=== PATIENT | male | born 1980 | race Caucasian/White ===

== ENCOUNTER 2018-05-22 02:15 | Inpatient (IN) ==
[2018-05-22] MEDS ORDERED: Naloxone 0.4 MG/ML INJ IVP PRN (05:36)
[2018-05-22] MEDS ORDERED: *HR* Heparin 5,000 UNIT/ML VIAL IVP ONE (05:41)
[2018-05-22] MEDS ORDERED: *HR* Heparin 5,000 UNIT/ML VIAL IVP PRN ×2 (05:41)
[2018-05-22] MEDS ORDERED: Heparin 25,000 UNIT/500 ML D5W 25,000 UNIT/500 ML BAG IVC SCH (05:45)
[2018-05-22] MEDS ORDERED: Nitroglycerin 25 MG/250 ML INFUS..BTL IVC SCH (05:45)
[2018-05-22] MEDS ORDERED: *HR* Morphine 2 MG/ML SYRINGE IVP PRN (05:49)
--- NOTE | 2018-05-22 06:19 | Internal Med History&Physical ---
Date of Encounter: 05/22/18 Time of Encounter: 06:00 Internal Medicine - H&P: HPI Chief complaint: Left sided chest pain of 2 days duration History of present illness: Mr. Odonnell is a 38 year old male with pmh of hypertension, hyperlipidemia, hypothyroidism, obesity who says he hasn't been taking his BP meds for the past 6 months because he couldn't get them presenting with left sided chest pain of 2 days duration. Patient notes pain started at rest when he was watching TV about 2 days ago, and has been constant sharp, no relieving factors and radiates to his left shoulder and neck. Pain continued to get worse and that's why he came to the ER. He denies any other acute symptoms such as shortness of breath or fevers. In ER, BP was noted to be elevated at 235/140 and he was started on a nitroglycerin drip. Troponins were done which came back at 3.96. CT angio was done which was negative for PE. Cardiology was consulted and he was started on a heparin drip Past Med Surg Social Fam HX - Past Medical History Medical history: hyperlipidemia, hypertension, thyroid disease Additional medical history: hypothyroidism Psychiatric history: no psych history - Past Surgical History Surgical History: vasectomy - Social History Smoking Status: Former smoker Smokeless Tobacco Status: Yes Alcohol use: occasionally Drug use: none Internal Medicine - H&P: Meds No Known Home Drugs 05/21/18 [History] 3 Allergy/AdvReac Type Severity Reaction Status Date / Time aspirin Allergy Rash Verified 05/21/18 22:53 All Systems PM: A 10-system review of systems was performed and is negative for pertinent findings except as documented above in the HPI. - Constitutional Constitutional: no chills, no fever(s), no night sweats - EENT Eyes: no change in vision, no discharge, no pain, no photophobia Ears: no ear discharge, no ear pain, no tinnitus Nose, mouth and throat: no dysphagia, no nasal discharge, no neck pain, no sore throat - Cardiovascular Cardiovascular ROS IM: chest pain, no diaphoresis, no dyspnea, no lightheadedness, no palpitations, no syncope - Respiratory Respiratory: no cough, no dyspnea, no wheezing, no excessive phlegm production - Gastrointestinal Gastrointestinal: no abdominal pain, no diarrhea, no hematemesis, no hematochezia, no melena, no nausea, no vomiting - Musculoskeletal Musculoskeletal ROS IM: no numbness, no tingling - Integumentary Integumentary IM: no rash, no unusual bruising - Neurological Neurological ROS: no confusion, no convulsions, no focal weakness, no numbness, no tingling, no tremor(s) - Hematologic/Lymphatic Hematologic/Lymphatic: no easy bruising - Constitutional Vitals: Temp Pulse Resp BP Pulse Ox 98.4 F 85 16 163/113 96 05/22/18 04:31 05/22/18 04:31 05/22/18 04:31 05/22/18 04:31 05/22/18 04:31 Exam: obese - Head Head exam: Present: atraumatic, normocephalic - Eye Eye exam: Present: PERRL, conjuntiva pink, sclera anicteric Pupils: Present: PERRL - Neck Neck exam general surgery: Present: supple, trachea midline. Absent: lymphadenopathy - Respiratory Respiratory exam: Present: CTAB. Absent: accessory muscle use, rales, rhonchi, wheezes - Cardiovascular Cardiovascular exam: Present: RRR, +S1, +S2. Absent: diastolic murmur, gallop, rubs, systolic murmur - GI/Abdominal GI/Abdominal exam: Present: normal bowel sounds, soft, no peritoneal signs. Absent: distended, tenderness - Extremities Exam Extremities exam: Present: warm, radial pulses palpable and symmetrical. Absent : calf tenderness, cyanotic, pedal edema - Neurological Exam Neurological exam: Present: CN II-XII intact, oriented X3, no focal deficits. Absent: pronater drift, facial droop, speech deficit - Skin Skin exam: Present: dry, intact - Assessment and plan (1) Hypertensive emergency Current Visit: No Status: Acute Assessment and plan: Hypertensive emergency with acute NSTEMI. Pt had elevated BP to 235/140 with chest pain and elevated troponins. Has been started on a nitroglycerin drip. Will attempt to lower BP slowly (2) NSTEMI (non-ST elevated myocardial infarction) Current Visit: No Status: Acute Assessment and plan: Pt had chest pain with elevated troponins of 3.96. Has risk factors for CAD including htn, hyperlipidemia , obesity and has not been taking his BP meds for 6 months. Started on ACS protocol with full anticoagulation, nitroglycerin, plavix and statin. Aspirin held due to allergy. CT angio showed no PE. Obtain 2D echo to assess for wall motion abnormalities. Follow up cardio recs for stress test vs cath (3) DVT prophylaxis Current Visit: Yes Status: Acute Assessment and plan: On heparin drip (4) Hypothyroidism Current Visit: Yes Status: Acute Assessment and plan: Reported hypothyroidism. Obtain TSH Qualifiers: Qualified Code(s): E03.9 - Hypothyroidism, unspecified - Time Spent With Patient Total time spent is greater than 50% in coordination of care (as documented) at patient's floor/unit and/or counseling patient:
[2018-05-22 06:32] LABS: Hematocrit 48.8 % (37.5-50.1); Hemoglobin 16.4 g/dL (12.9-16.9); Mean Corpuscular HGB Conc 33.6 g/dL (31.6-35.5); Mean Corpuscular Hemoglobin 28.3 pg (28.0-33.3); Mean Corpuscular Volume 84.1 fL (83.0-100.0); Mean Platelet Volume 10.4 fL (9.4-12.4); Platelet Count 236 K/mcL (140-400); Red Cell Distribution Width 13.4 % (11.5-14.5)
[2018-05-22 06:39] LABS: Heparin anti-factor XA UFH 0.12 IU/mL (0.30-0.70)
[2018-05-22 06:40] LABS: Basophils # 0.1 K/mcL (0.0-0.2); Basophils % 0.4 %; Eosinophils # 0.1 K/mcL (0.0-0.6); Eosinophils % 0.5 %; Immature Granulocytes % 0.3 % (0-4); Lymphocytes # 2.7 K/mcL (0.6-4.6); Monocytes # 1.1 K/mcL (0.0-1.3); Monocytes % 7.4 %; Neutrophils # 10.4 K/mcL (1.6-8.9); Segmented Neutrophils % 72.4 %
[2018-05-22 07:03] LABS: BUN/Creatinine Ratio 12 (6-26); Blood Urea Nitrogen 10 mg/dL (6-20); Carbon Dioxide 22 mEq/L (23-29); Chloride 105 mEq/L (98-107); Glucose 119 mg/dL (70-105); Magnesium 1.9 mg/dL (1.6-2.6); Osmolality,Calculated 282 (280-300); Phosphorous 3.6 mg/dL (2.7-4.5); Potassium 4.3 mEq/L (3.5-5.1); Sodium 136 mEq/L (136-145); Troponin I 5.06 ng/mL (< 0.04); eGFR For Non-African Americans > 60 (> 60)
[2018-05-22 07:22] LABS: Thyroid Stimulating Hormone 19.777 mcIU/mL (0.340-5.600)
[2018-05-22] MEDS: Potassium Chloride Elixir 20 MEQ/15 ML UDC PO SCH ×2 (08:42→20:35)
[2018-05-22] MEDS ORDERED: Aspirin 81 MG TAB.CHEW PO SCH (09:00)
--- NOTE | 2018-05-22 09:00 | Cardiology Consult Note ---
<Shady Castellano R - Last Filed: 05/22/18 09:12> Date of Encounter: 05/22/18 Time of Encounter: 08:46 Assessment and Plan (1) NSTEMI (non-ST elevated myocardial infarction) Current Visit: Yes Status: Acute Troponins 3.69, 3.93, 5.06. BP reportedly as high as 235/140. PMH uncontrolled HTN, HLD. EKG sinus tach. CTA negative for PE. Constant chest pain x 2 days with radiation to left arm and neck. No other associated symptoms. On heparin gtt and nitro gtt--currently chest pain free. TTE to evaluate structure and function. Recommend LHC--R/B/A discussed. Pt agrees to proceed. Pt was already started on ASA, Plavix, Statin, BB by primary team. ASA allergy listed--pt reports mild rash, states is not too bothersome and would be agreeable to take it if necessary. (2) Hypertensive emergency Current Visit: Yes Status: Acute BP reportedly as high as 235/140. Was not on antihypertensive meds the past 6 months. On nitro gtt. BB started. Will order IV Hydralazine PRN and adjust antihypertensives as necessary. (3) Hypothyroidism Current Visit: Yes Status: Acute TSH 19.777. Management per primary team. Qualifiers: Hypothyroidism type: unspecified Qualified Code(s): E03.9 - Hypothyroidism , unspecified Discussion w patient/family: The assessment and plan as outlined above was discussed with the patient and/or family members who expressed understanding and agreement. All questions were answered. Thank you for involving us in the care of your patient. Please call with any questions. I will discuss all the above with Dr. Irineo Hong and make changes as necessary. History of Present Illness Consult date: 05/22/18 Requesting physician: Hina Mathur Consult reason: NSTEMI Chief complaint: chest pain History of present illness: Mr. Odonnell is a 38 year old male with PMH of hypertension, hyperlipidemia, hypothyroidism, obesity, who hasn't been taking his BP meds for the past 6 months due to running out of refills that presented with left sided chest pain for 2 days. Pain started at rest when he was watching TV and has been constant sharp, radiates to his left shoulder and neck. Pain continued to get worse and that's why he came to the ER. He denies any other associated symptoms such as dyspnea or LE edema. In ER, BP was noted to be elevated at 235/140 and he was started on a nitroglycerin drip. Troponins have been trended --3.69, 3.93, 5.06. Pt is currently chest pain free. CTA negative for PE. Cardiology consulted for further recs. Past Med Surg Social Fam HX - Past Medical History Medical history: hyperlipidemia, hypertension, thyroid disease Additional medical history: hypothyroidism Psychiatric history: no psych history - Past Surgical History Surgical History: vasectomy - Social History Smoking Status: Former smoker Smokeless Tobacco Status: Yes Alcohol use: occasionally Drug use: none Medications and Allergies No Known Home Drugs 05/21/18 [History] 3 Allergy/AdvReac Type Severity Reaction Status Date / Time aspirin Allergy Rash Verified 05/21/18 22:53 All Systems Review: The remainder of the systems were reviewed and are negative - Cardiovascular Cardiovascular: as per HPI, chest pain at rest, chest pain with exertion, radiating jaw, neck or arm pain Physical Examination Vital Signs, Last 4 Hours Temp Pulse Resp BP Pulse Ox 05/22/18 07:19 98.6 F 94 18 194/136 95 Vital Signs Temp Pulse Resp BP Pulse Ox 05/22/18 07:19 98.6 F 94 18 194/136 95 05/22/18 04:31 98.4 F 85 16 163/113 96 Intake and Output 05/21/18 05/22/18 05/22/18 23:59 07:59 15:59 Intake Total Output Total 0 / 0 Balance Intake: IV Fluids Heparin 25,000 UNIT/500 ML D5W 0 / 0 25,000 unit In 500 ml @ 8.2 UNIT/KG/HR 19.926 mls/hr IVC . Q24H [facility] Rx#:[id number] Nitroglycerin Premix 25 MG/250 ML 25 mg In 250 ml @ Per Protocol IVC .Q0M ROSALINE Rx#: [id number] Output: Urine 0 / 0 Other: Weight 121.5 kg Patient Weight 05/22/18 23:59 Weight 121.5 kg General: Conversant, No Apparent Distress HEENT: Atraumatic, Normocephaly, Mucus Membranes Moist Neck: No JVD, Normal carotid pulses Cardiac: Reg Rate and Rhythm, Normal S1 and S2, No Murmur Lungs: Normal Breath Sounds, No Wheeze, Rales, Rhonchi Neuro: Alert and responsive, No focal deficits noted Abdomen: Soft, Non-Tender Skin: No rashes noted on visualized skin Musculoskeletal: No Chest Wall Tenderness Extremities: No Clubbing, No Cyanosis, No Edema, Normal Pulses Results 05/22/18 06:02 05/22/18 06:02 Lab Results 05/22/18 05/22/18 05/22/18 06:02 06:02 06:02 WBC 14.0 H Hgb 16.4 Hct 48.8 Plt Count 236 INR 1.0 Sodium 136 Potassium 4.3 D Chloride 105 Carbon Dioxide 22 L BUN 10 Creatinine 0.85 Glucose 119 H Calcium 9.0 Magnesium 1.9 Troponin I 5.06 H* TSH 19.777 H - EKG Interpretation EKG results cardiology: personally reviewed, other (12 hr tele AVG HR 89, SR, no significant pauses or arrhythmias) Consult Discharge Plan - Plan Referrals: Danny Xie DO [Primary Care Provider] - Kaela Carter [Family Provider] - <Irineo Hong - Last Filed: 05/22/18 12:36> Date of Encounter: 05/22/18 - Attending Attestation I have personally performed a face to face evaluation on this patient. I have reviewed and agree with the care plan. History and Exam by me shows: Multiple niyah factors, chest pain with NSTEMI. Recommend left heart cath. Assessment and Plan Discussion w patient/family: The assessment and plan as outlined above was discussed with the patient and/or family members who expressed understanding and agreement. All questions were answered. Thank you for involving us in the care of your patient. Please call with any questions. History of Present Illness History of present illness: Mr. Odonnell is a 38 year old male All Systems Review: The remainder of the systems were reviewed and are negative Physical Examination Vital Signs, Last 4 Hours Temp Pulse Resp BP Pulse Ox 05/22/18 11:45 98.4 F 83 18 129/92 95 Results 05/22/18 06:02 05/22/18 06:02 Lab Results 05/22/18 05/22/18 05/22/18 06:02 06:02 06:02 WBC 14.0 H Hgb 16.4 Hct 48.8 Plt Count 236 INR 1.0 Sodium 136 Potassium 4.3 D Chloride 105 Carbon Dioxide 22 L BUN 10 Creatinine 0.85 Glucose 119 H Calcium 9.0 Magnesium 1.9 Troponin I 5.06 H* TSH 19.777 H
[2018-05-22] MEDS: Aspirin 81 MG TAB.CHEW PO SCH (10:00)
--- NOTE | 2018-05-22 10:29 | Event Note ---
Date of Encounter: 05/22/18 Time of Encounter: 10:27 Patient was examined and the review of the test reports. Also reviewed the cardiology note. A sterile high blood pressure therefore metoprolol 25 mg every 8 hours with hold parameter started. Continue nitroglycerin and heparin drip. Plan for LHC later today. Chest pain better but developing mild headache. Will plan to wean down nitroglycerin drip if severe headache or blood pressure better controlled. Morning lab ordered.
[2018-05-22] MEDS ORDERED: Nitroglycerin 1,000 MCG/10 ML VIAL IV ONE (12:35)
[2018-05-22] MEDS ORDERED: ISOVUE-370 200 ML INFUS..BTL IV ONE ×3 (12:35→13:58)
[2018-05-22] MEDS ORDERED: *HR* Heparin 10,000 UNIT/10 ML VIAL ONE (12:35)
[2018-05-22] MEDS ORDERED: 0.9 % Sodium Chloride 1,000 ML ONE ×2 (12:35→13:00)
[2018-05-22] MEDS ORDERED: Heparin 1,000 UNITS/500 mL 500 ML ONE (12:35)
[2018-05-22] MEDS ORDERED: *HR* Midazolam HCl 2 MG/2 ML VIAL ONE ×3 (13:10→13:56)
--- NOTE | 2018-05-22 13:11 | Pre-Sedation Evaluation ---
Pre-sedation evaluation - Pre-sedation checklist Date of procedure: 05/22/18 Procedure: [facility] Recent Vitals: Last Vital Signs Temp 98.4 F 05/22/18 11:45 Pulse 83 05/22/18 11:45 Resp 18 05/22/18 11:45 BP 129/92 05/22/18 11:45 Pulse Ox 95 05/22/18 11:45 H&P (including ROS) documented in medical record: Yes Previous reaction to sedatives/anesthetics: No Dietary Status: NPO after Midnight Dentition: No loose teeth or bridges Possible difficult airway: No ASA Classification *see protocol: CLASS III-Severe systemic disease Plan of Care: Pt appropriate candidate for procedure/moderate/conscious sedation , Risks/benefits of procedure/sedation discussed w/ patient/family, If not NPO; Risk of intake outweiged by necessity to perform procedure Cardiac Registry (Cardio Only) - Functional Capacity Functional Capacity: >=4 METS without symptoms - Clincal Frailty Scale Clinical Frailty Scale: Well
[2018-05-22] MEDS ORDERED: *HR* Morphine 2 MG/ML SYRINGE ONE ×3 (13:37→14:26)
[2018-05-22] MEDS ORDERED: *HR* Ticagrelor 90 MG TABLET ONE (14:40)
--- NOTE | 2018-05-22 16:14 | Invasive Diagnostic Lab Proc ---
Name: Chandan Odonnell Date of Study: 05/22/2018 Date: 1980 Ht: 68.1in Medical Record#: [id number] Age: 38 Wt: 267.86lb Gender: Male BSA: 2.32 Order #: [id number] BMI: 40.6 Physicians Procedure Physician: Edmond Coronel DO Referring MD: Referring MD: Staff Name Position Time In [facility], [facility] RT (R) Scrub 01:02 PM Bethanie Samano RN Monitor 01:03 PM Dong Baker RN Retail Administrative Assistant 01:03 PM Jennifer Santizo RN Monitor 01:17 PM Indications Indication Non-Stemi Procedures Performed Procedure L HRT ARTERY/VENTRICLE ANGIO PRQ CARD ARIAS STENT W/ANGIO 1 VSL PRQ CARDIAC ANGIOPLAST 1 ART Pre-Procedure Checklist Informed consent is complete signed and on chart. H&P is on chart. ID band is on and ID verified with patient. Patient NPO for procedure The procedure was described for the patient and questions were answered. Blood Pressure: 129/92 ECG is on chart. Plan of Care Patient will tolerate the procedure without complications. Adequate level of comfort will be maintained. Hemodynamics will remain stable Patient will recover from procedure without complications. Respiratory function will be maintained. Cardiac rhythm will remain stable. Patient temperature will be maintained. Patient and/or family have verbalized understanding of the procedure. Patient Education Chief Complaint/Reason for Test: Cardiac Cath Developmental Category: Adult (18-64 years) Developmentally Appropriate for Age: Yes Learning Barriers: None Education Needs: Procedure Education Method: Verbal Information Taught: Cardiac Cath Educational Evaluation: Able to repeat information Intravenous Access Time IV Size Location DC'd Fluid/Drip Rate Units RN 20g 1 1/4" Patent On Arrival Lt Antecubital 20g 1 1/4" Patent On Arrival Rt Antecubital Allergies aspirin NO KNOWN ALLERGIES Vital Signs Time BP (mmHg) HR (bpm) O2 Sat. RR (bpm) LOC 10:24 AM 194 / 136 94 94 % 18 5 = Fully awake and oriented or at pre-proc level 01:10 PM / % 5 = Fully awake and oriented or at pre-proc level 01:10 PM / % 4 = Oriented but drowsy 01:25 PM / % 4 = Oriented but drowsy 01:40 PM / % 4 = Oriented but drowsy 01:55 PM / % 4 = Oriented but drowsy 02:10 PM / % 4 = Oriented but drowsy 01:55 PM 186 / 118 99 99 % 25 01:59 PM 183 / 113 101 97 % 29 02:04 PM 195 / 128 100 97 % 9 02:10 PM 193 / 129 94 98 % 23 02:14 PM 195 / 140 97 96 % 12 02:28 PM 196 / 139 98 % 16 01:10 PM 153 / 105 98 96 % 5 01:14 PM 159 / 103 91 94 % 01:19 PM 160 / 101 89 95 % 01:25 PM 164 / 106 86 97 % 01:29 PM 165 / 108 89 98 % 17 01:35 PM 155 / 101 96 97 % 15 01:39 PM 173 / 111 95 97 % 25 01:44 PM 168 / 122 97 97 % 20 01:49 PM 181 / 120 96 97 % 29 02:40 PM 192 / 140 102 97 % 18 4 = Oriented but drowsy 02:45 PM 192 / 129 94 95 % 18 4 = Oriented but drowsy 03:00 PM 180 / 138 96 95 % 16 4 = Oriented but drowsy 03:15 PM 181 / 125 96 99 % 16 4 = Oriented but drowsy 03:30 PM 165 / 103 96 99 % 16 4 = Oriented but drowsy 03:44 PM 159 / 101 90 99 % 16 4 = Oriented but drowsy 03:56 PM 147 / 79 80 94 % 16 4 = Oriented but drowsy 04:00 PM 136 / 85 80 95 % 16 5 = Fully awake and oriented or at pre-proc level Procedural Medications Time Medication Dose Units Method Given By 01:01 PM Nitroglycerin 25 mcg/min Intravenous 01:10 PM Oxygen 2 L/min nasal cannula Dong Baker RN 01:10 PM 0.9NaCl 50 ml/hr Intravenous Dong Baker RN 01:11 PM Versed 2 mg Intravenous Dong Baker RN 01:21 PM Lidocaine 2% 10 ml Subcutaneous Edmond Coronel DO 01:22 PM Nitroglycerin D/c'd Dong Baker RN 01:23 PM Lidocaine 2% 7 ml Subcutaneous Edmond Coronel DO 01:25 PM Versed 1 mg Intravenous Dong Baker RN 01:30 PM Versed 1 mg Intravenous Dong Baker RN 01:34 PM Heparin 2000 units Intravenous Dong Baker RN 01:37 PM Morphine 2 mg Intravenous Dong Baker RN 01:51 PM Heparin 2000 units Intravenous Dong Baker RN 01:56 PM Versed 1 mg Intravenous Dong Baker RN 01:58 PM Nitroglycerin 100 mcg Intracoronary CoronelEdmond 02:07 PM Morphine 2 mg Intravenous Dong Baker RN 02:22 PM Brilinta 180 mg Orally Dong Baker RN 02:27 PM Versed 1 mg Intravenous Dong Baker RN 02:27 PM Morphine 2 mg Intravenous Dong Baker RN 02:29 PM Nitroglycerin 5 mcg/min Intravenous Dong Baker RN 03:00 PM Hydralazine 10 mg Intravenous Jennifer Santizo RN ASA Classification: CLASS III- Severe systemic disease (i.e. prior AMI, diabetes with vascular complications, morbid obesity) Juan Score Preprocedure Postprocedure Activity 2- Moves 4 extremities sustained head lift Activity 2- Moves 4 extremities sustained head lift Circulation 2- SBP +/= 20 points of pre-anesthetic level Circulation 2- SBP +/= 20 points of pre-anesthetic level Consciousness 2- Awake and alert oriented x 3 Consciousness 2- Awake and alert oriented x 3 O2 Saturation 2- Able to maintain O2 satruation of 92% on room air O2 Saturation 2- Able to maintain O2 satruation of 92% on room air Respiratory 2- Able to deep breathe and cough well Respiratory 2- Able to deep breathe and cough well Total Score 10 Total Score 10 Contrast Agent: Isovue Diagnostic Contrast: 280 ml Total Contrast: 280 ml Fluoro Dose: 421 mGy Activated Clotting Time Time Seconds to Clot 01:51 PM 255 02:25 PM 169 Procedure Log Time Note Enter By 01:01 PM Pt arrived to lab head 1 at 13:01 scoates 01:02 PM Patient arrived at 13:01 with Nitroglycerin Intravenous drip @ 25 mcg/min scoates 01:02 PM Physican responded and notified patient is ready 12:27 scoates 01:03 PM Brittani Sosa (R) Position: Scrub Time in: 13:02 scoates 01:03 PM Bethanie Samano RN Position: Monitor Time in: 13:03 scoates 01:03 PM Dong Baker RN Position: Retail Administrative Assistant Time in: 13:03 scoates 01:03 PM Patient charges- Angio tray pack, Navilyst 3mm J, Pulse Oximetry and ACIST tubing and transducer scoates 01:03 PM Jennifer Santizo RN Position: Monitor Time in: 13:03 avis :05 PM Sign in performed according to hospital policy. kmavis 01:06 PM CathStat 01:06 PM Case Start 01:06 PM Physician arrived 13:04 kmavis 01:06 PM Meet and greet completed kmavis 01:06 PM Procedure start 13:06 avis :07 PM Hair removed from procedure site in holding area using clippers. Bilateral groin prepped with Chloraprep by Brittani Sosa (R), then patient was draped. Skin intact. avis 01:08 PM Vitals capture started with the following parameters, Patient=Adult, Interval=5 min, Initial Dswrgcqm=592 mmHg, Deflation Rate=3 mmHg, Cuff placed on Right Arm 01:[address] Coronel states to discontinue nitro drip. Titrating nitro drip off. avis :10 PM Time: 13:10 Oxygen on at 2 L/min per nasal cannula by Dong Baker RN [facility] :10 PM Time: 13:10 Patient comfortable and pain free: Yes avis :10 PM Time: 13:10LOC: 5 = Fully awake and oriented or at pre-proc level avis :10 PM HR=98 bpm, QWZV=712/105 mmhg, SpO2=96.0 %, Resp=5 B/min, EtCO2=33 mmHg, Comment=nsr 01:10 PM Clinical Presentation: Unstable angina avis :11 PM Time: 13:10 0.9NaCl 50 ml/hr Intravenous Given by Dong Baker RN avis :11 PM Time: 13:11 Versed 2 mg Intravenous Given by Dong Baker RN avis 01:14 PM HR=91 bpm, HZVQ=693/103 mmhg, SpO2=94.0 %, EtCO2=32 mmHg, Comment=nsr 01:19 PM HR=89 bpm, OXTU=843/101 mmhg, SpO2=95.0 %, EtCO2=23 mmHg, Comment=nsr 01:20 PM Time out performed according to hospital policy avis 01:21 PM Time: 13:21 10 ml Lidocaine 2% to right groin Subcutaneous Given by Edmond Coronel DO kmavis :22 PM Time: 13:22 Nitroglycerin D/c'd Given by Dong Baker RN kmavis : PM ASA Class CLASS III- Severe systemic disease (i.e. prior AMI, diabetes with vascular complications, morbid obesity) avis : PM Time: 13:23 7 ml Lidocaine 2% to right groin Subcutaneous Given by Edmond Coronel DO kmavis :24 PM Pressure channel 1 zeroed. : PM Time: 13:25 Versed 1 mg Intravenous Given by Dong Baker RN avis : PM Time: 13:10 Patient comfortable and pain free: Yes avis : PM HR=86 bpm, OIFR=992/106 mmhg, SpO2=97.0 %, EtCO2=32 mmHg, Comment=nsr : PM Time: 13:10LOC: 4 = Oriented but drowsy kmavis : PM Micro-Introducer Kit utilized for sheath placement avis : PM Access obtained by percutaneous puncture. 6Fr 10cm Terumo [place] sheath placed in right Femoral artery. [id number] avis : PM Pressure channel 2 zeroed. 01:27 PM Recorded ECG: HR=89 Condition=Condition 1 01:27 PM 6Fr FR 4 [facility] 0.035 145cm Navilyst 3mmJ wire [id number] avis :27 PM Catheter selectively placed in left ventricle kmavis :28 PM Bolus angiogram of right Ventricle complete: 10 ml/sec for a total of 10 mls avis : PM Recorded Pressure: LV, HR=78, Condition=Condition 1 (Left Ventricle) LV 87/69/65 01:28 PM Recorded Pressure: LV, HR=87, Condition=Condition 1 (Left Ventricle) LV 96/47/38 01:28 PM Recorded Pressure: LV, HR=87, Condition=Condition 1 (Left Ventricle) LV 125/97/109 01:29 PM Catheter removed avis : PM 6Fr FL 4 catheter [facility] over the wire [facility] PM LCA angiography performed in multiple views. kmavis : PM Coronary Dominance: right kmavis : PM HR=89 bpm, GYPL=846/108 mmhg, SpO2=98 %, Resp=17 B/min 01:30 PM Recorded Pressure: Ao, HR=91, Condition=Condition 1 (Aorta) Ao 114/94/104 01:30 PM Time: 13:30 Versed 1 mg Intravenous Given by Dong Baker RN kmavis 01:31 PM Catheter removed kmavis 01:32 PM PCI Status Elective kmavis 01:32 PM PCI lesion in 1st Marginal. Pre Stenosis: 100 Pre ABIMBOLA Flow: kmavis 01:33 PM PCI lesion in 1st Marginal. kmavis 01:33 PM 6Fr JL4 Runway guide catheter was used to cannulate the PCI vessel unsuccessfully. reused? No kmavis 01:33 PM .014 Choice Extra Support 300cm guide wire across target lesion- successful. reused? No kmavis 01:33 PM Inflation device was opened. kmavis 01:34 PM Lesion found in Mid LAD. Pre Stenosis: 70 Pre ABIMBOLA Flow: 3: Complete and Brisk Flow/Perfusion kmavis :34 PM Time: 13:34 Heparin 2000 units Intravenous Given by Dong Baker RN kmavis 01:35 PM Lesion found in 1st Marginal. Pre Stenosis: 100 Pre ABIMBOLA Flow: 0: No Flow/No perfusion kmavis 01:35 PM HR=96 bpm, NRZC=097/101 mmhg, SpO2=97.0 %, Resp=15 B/min, EtCO2=27 mmHg, Comment=nsr 01:35 PM guide catheter removed. kmavis 01:36 PM 6Fr XB LAD 3.5 Cordis guide catheter was used to cannulate the PCI vessel successfully. reused? No kmavis 01:37 PM Recorded Pressure: Ao, HR=97, Condition=Condition 1 (Aorta) Ao 145/114/129 01:37 PM Time: 13:37 Morphine 2 mg Intravenous Given by Dong Baker RN kmavis 01:39 PM HR=95 bpm, UHFH=044/111 mmhg, SpO2=97.0 %, Resp=25 B/min, EtCO2=30 mmHg, Comment=nsr 01:40 PM Time: 13:25 Patient comfortable and pain free: Yes kmavis 01:40 PM Time: 13:25LOC: 4 = Oriented but drowsy kmavis 01:41 PM Recorded Pressure: Ao, HR=96, Condition=Condition 1 (Aorta) Ao 138/101/118 01:44 PM HR=97 bpm, QRHV=113/122 mmhg, SpO2=97.0 %, Resp=20 B/min, EtCO2=38 mmHg, Comment=nsr 01:46 PM Recorded ECG: HR=97 Condition=Condition 1 01:46 PM Recorded Pressure: Ao, HR=92, Condition=Condition 1 (Aorta) Ao 138/109/124 01:47 PM .014 Choice Extra Support 300cm guide wire across target lesion- successful. reused? No kmavis 01:48 PM ACT drawn and running kmavis 01:49 PM HR=96 bpm, VJEP=415/120 mmhg, SpO2=97.0 %, Resp=29 B/min, EtCO2=31 mmHg, Comment=nsr 01:51 PM At 13:51 the ACT was 255 seconds. kmavis 01:51 PM Time: 13:51 Heparin 2000 units Intravenous Given by Dong Baker RN kmavis 01:55 PM HR=99 bpm, XBUN=617/118 mmhg, SpO2=99.0 %, Resp=25 B/min, EtCO2=36 mmHg, Comment=nsr 01:55 PM 1.5 mm x 15 mm Emerge Monorail balloon across target lesion- successful. reused? No kmavis 01:55 PM Time: 13:40LOC: 4 = Oriented but drowsy avis 01:55 PM Time: 13:40 Patient comfortable and pain free: No kmavis 01:56 PM Time: 13:56 Versed 1 mg Intravenous Given by Dong Baker RN avis 01:57 PM Balloon inflated @ 14 kusum for 17 seconds kmavis 01:57 PM Balloon inflated @ 14 kusum for 15 seconds kmavis 01:58 PM Balloon catheter removed intact. kmavis 01:58 PM Time: 13:58 Nitroglycerin 100 mcg Intracoronary Given by Edmond Coronel DO kmavis 01:59 PM DD=958 bpm, HRAZ=868/113 mmhg, SpO2=97.0 %, Resp=29 B/min, EtCO2=34 mmHg, Comment=nsr 02:00 PM 2.0 mm x 20 mm Emerge Monorail balloon across target lesion- successful. reused? No kmavis 02:02 PM Balloon inflated @ 12 kusum for 26 seconds kmavis 02:03 PM Balloon catheter removed intact. kmavis 02:03 PM Guide wire removed intact. kmavis 02:04 PM EW=893 bpm, YIJS=249/128 mmhg, SpO2=97 %, Resp=9 B/min 02:08 PM Time: 14:07 Morphine 2 mg Intravenous Given by Dong Baker RN kmavis 02:10 PM HR=94 bpm, TSTA=107/129 mmhg, SpO2=98.0 %, Resp=23 B/min, EtCO2=23 mmHg, Comment=nsr 02:10 PM Time: 13:55LOC: 4 = Oriented but drowsy kmavis 02:10 PM Time: 13:55 Patient comfortable and pain free: No kmavis 02:11 PM Lesion found in Distal LAD. Pre Stenosis: 90 Pre ABIMBOLA Flow: 3: Complete and Brisk Flow/Perfusion kmavis 02:13 PM 2.25mm x 16mm Synergy drug-eluting stent across target lesion- successful Lot #[id number] kmavis 02:13 PM Stent deployed @ 14 kusum for 14 seconds kmavis 02:13 PM Stent delivery system removed intact. kmavis 02:14 PM 3.0mm x 16mm Synergy drug-eluting stent across target lesion- successful Lot #[id number] kmavis 02:14 PM HR=97 bpm, ZXBS=818/140 mmhg, SpO2=96.0 %, Resp=12 B/min, Comment=nsr 02:15 PM Stent deployed @ 16 kusum for 16 seconds kmavis 02:16 PM Stent delivery system removed intact. kmavis 02:16 PM Mid/Distal Left Anterior Descending Coronary Artery and diagonal branches with 90% stenosis. If graft is supplying this area, 0 % stenosis kmavis 02:16 PM Circumflex, Obtuse Marginal, Left Posterior Descending, and Left Posterolateral Coronary Arteries with 100 % stenosis. If graft is supplying this area, 0 % stenosis kmavis 02:17 PM 3.5mm x 8mm Synergy drug-eluting stent across target lesion- successful Lot #[id number] kmavis 02:19 PM Stent deployed @ 16 kusum for 13 seconds kmavis 02:19 PM Antonieta ALICIA addressed high blood pressure with Dr. Coronel, no new orders at this time kmavis 02:20 PM Stent delivery system removed intact. kmavis 02:20 PM Guide wire removed intact. kmavis 02:21 PM femoral image 5ml of contrast kmavis 02:21 PM Vitals capture stopped. 02:22 PM Time: 14:22 Brilinta 180 mg Orally Given by Dong Baker RN kmavis 02:22 PM act drawn and running at this time. kmavis 02:22 PM [ Start or Stop Vital ] 02:23 PM Procedure completed at 14:23 05/22/2018 kmavis 02:23 PM Did you address ABIMBOLA flow and Dominance? Yes kmavis 02:25 PM Sign out completed: Radiation Dose 4445.91 mGy, 421.32 Gy/cm2 Fluoro Time: 17.9 Isovue 370 - 200ml contrast 280 ml given by Edmond Coronel DO. Complications: NoneCardiac Rehab Consult needed: NoConfirmed administered medications: Yes kmavis 02:25 PM At 14:25 the ACT was 169 seconds. kmavis 02:25 PM Time: 14:10LOC: 4 = Oriented but drowsy kmavis 02:25 PM Isovue 370 - 200ml,3 Bottle(s) used. kmavis 02:25 PM Sheath left in place to be pulled on floor/holding areaV+Pad kmavis 02:26 PM Estimated Blood Loss: less than 50cc kmavis 02:26 PM Post ECG NSR kmavis 02:26 PM Vitals capture started with the following parameters, Patient=Adult, Interval=5 min, Initial Iqhyemal=639 mmHg, Deflation Rate=3 mmHg, Cuff placed on Right Arm 02:26 PM Post Blood Pressure 195/140 kmavis 02:27 PM Information taught Cardiac Cath, PCI, and V+ Pad kmavis 02:27 PM Education needs Procedure, Plan of Care, Safe & Effective Use of Medications, and Responsibilities of Patient in Care kmavis 02:27 PM Time: 14:27 Versed 1 mg Intravenous Given by Dong Baker RN kmavis 02: PM Time: 14:27 Morphine 2 mg Intravenous Given by Dong Baker RN kmavis 02:28 PM HR=98 bpm, NLAZ=170/139 mmhg, Resp=16 B/min 02:28 PM Learning barriers :None kmavis 02:28 PM Education Methods Verbal kmavis 02:28 PM Education evaluation Able to repeat information kmavis 02:28 PM Site status No bleeding/hematoma - Rt Groin as reported by Dong Baker RN at 14:28 [facility] 02:28 PM Opsite applied ravenna 02:29 PM Time: 14:29 Nitroglycerin 5 mcg/min Intravenous Given by Dong Baker RN [facility] 02:29 PM Family placed in consult room. avi 02:29 PM Complications: None [facility] 02:30 PM Report given to Liv ALICIA Pt taken to Holding room Room #. 14:29 avi 02:32 PM Patient out of room: 14:32 avis 02:35 PM patient arrive to holding room 4. denies chest pain mprater 02:40 PM BP 192/140. NTG gtt increased to 10 mcg mprater 02:[address] Coronel aware BP readings, ordered to increase NTG gtt. BP 192/129. NTG increased to 15 mcg mprater 02:52 PM Report given to Nilson ALICIA Pt taken to [facility] Room #35. 14:52 scoates 03:00 PM BP 180/138. NTG gtt increased to 20mcq. Hydralazine 10mg IVP given per Jennifer Santizo RN per Dr Coronel orders. mprater 03:15 PM BP 181/125. NTG gtt increased to 25mcq/15cc mprater 03:44 PM Arterial sheath pulled using manual compression and V+ Pad for 15 minutes by Liv Valenzuela RN sylvia 03:57 PM Dinner tray ordered to be sent to [address] [place] [address] 04:01 PM Arterial sheath pulled, 2X2 closure device used and was Successful S/N. sylvia 04:07 PM Patient transfered to [address] [place] [address] Complications Complication None None Hemodynamics Pressures Site Systolic/A Wave Diastolic/V Wave Mean LV 87 69 65 LV 96 47 38 LV 125 97 109 AO 114 94 104 AO 145 114 129 AO 138 101 118 AO 138 109 124 Post Procedure Information Blood Pressure: 195/140 mmHg Rhythm: NSR Post procedural instructions were given Closure Device Time Device Success/Fail 05/22/2018 2:33:00 PM Manual Compression 05/22/2018 3:44:00 PM Manual Compression Successful Site Checks Time Location Status Staff Sheath In? Note 02:28 PM Rt Groin No bleeding/hematoma Dong Baker RN 02:40 PM Rt Groin No bleeding/ No Hematoma Liv Valenzuela RN Yes 02:45 PM Rt Groin No bleeding/ No Hematoma Liv Valenzuela RN Yes 03:00 PM Rt Groin No bleeding/ No Hematoma Liv Valenzuela RN Yes 03:15 PM Rt Groin No bleeding/ No Hematoma Liv Valenzuela RN Yes 03:30 PM Rt Groin No bleeding/ No Hematoma Liv Valenzuela RN Yes 04:00 PM Rt Groin No bleeding/ No Hematoma Liv Valenzuela RN No Pulses Time Site Pre-Procedure Post-Procedure Note Bilateral DP & PT 2+ Bilateral radial 2+ 05/22/2018 3:00:00 PM Bilateral DP & PT 2+ 05/22/2018 3:15:00 PM Bilateral DP & PT 2+ Updated by Inge Lopez RN on 05/22/2018 4:06:37 PM electronically signed on 05/22/2018 4:07:33 PM with status of Final
[2018-05-22] MEDS ORDERED: Ondansetron 4 MG/2 ML VIAL IVP PRN (18:07)
[2018-05-22] MEDS: *HR* Ticagrelor 90 MG TABLET PO SCH (20:35)
[2018-05-23 01:47] LABS: Basophils % 0.3 %; Eosinophils % 0.3 %; Hematocrit 46.9 % (37.5-50.1); Hemoglobin 15.8 g/dL (12.9-16.9); Immature Granulocytes % 0.4 % (0-4); Lymphocytes # 2.1 K/mcL (0.6-4.6); Lymphocytes % 15.5 %; Mean Corpuscular HGB Conc 33.7 g/dL (31.6-35.5); Mean Corpuscular Hemoglobin 28.7 pg (28.0-33.3); Mean Corpuscular Volume 85.1 fL (83.0-100.0); Mean Platelet Volume 10.2 fL (9.4-12.4); Monocytes # 1.4 K/mcL (0.0-1.3); Monocytes % 10.1 %; Neutrophils # 10.1 K/mcL (1.6-8.9); Platelet Count 226 K/mcL (140-400); Red Blood Count 5.51 M/mcL (4.19-5.50); Red Cell Distribution Width 13.7 % (11.5-14.5); Segmented Neutrophils % 73.4 %
[2018-05-23 02:08] LABS: BUN/Creatinine Ratio 13 (6-26); Blood Urea Nitrogen 11 mg/dL (6-20); Calcium 9.2 mg/dL (8.6-10.3); Carbon Dioxide 23 mEq/L (23-29); Chloride 106 mEq/L (98-107); Glucose 119 mg/dL (70-105); Osmolality,Calculated 285 (280-300); Phosphorous 2.7 mg/dL (2.7-4.5); Potassium 4.1 mEq/L (3.5-5.1); Sodium 137 mEq/L (136-145); eGFR For Non-African Americans > 60 (> 60)
[2018-05-23] MEDS: Aspirin 81 MG TAB.CHEW PO SCH (08:07)
[2018-05-23] MEDS: *HR* Ticagrelor 90 MG TABLET PO SCH (08:07)
--- NOTE | 2018-05-23 10:26 | Cardiology Progress Note ---
Date of Encounter: 05/23/18 Time of Encounter: 09:00 Assessment and Plan (1) NSTEMI (non-ST elevated myocardial infarction) Current Visit: Yes Status: Acute Per cardiology: -Troponins 3.69, 3.93, 5.06. -BP reportedly as high as 235/140. PMH uncontrolled HTN, HLD. -EKG sinus tach. CTA negative for PE. -Admitted Constant chest pain x 2 days with radiation to left arm and neck. No other associated symptoms. -S/p LHC yesterday with unofficial report reviewed with 3 ARIAS placed to LAD. -Denies current chest pain. -On asa, brilinta. Educated on importance of dual anti-platelet therapy uninterrupted for at least one year, states understanding. -On statin, BB. -Right groin access site without hematoma or ecchymosis. Right groin site management education reviewed with patient, states understanding. -TTE with LVEF 55%, moderate concentric LVH, mild diastolic dsyfunction, mild elevation in RA pressures, no segmental wall motion abnormalities noted. -Denies issues taking asa. -Continua dual anti-platelet therapy uninterrupted for at least one year, brilinta assistance card given to pateint. -Cardiology will sign off and will follow in outpatient setting. Follow up set. (2) Hypertensive emergency Current Visit: Yes Status: Acute Per cardiology: -BP reportedly as high as 235/140. -Was not on antihypertensive meds the past 6 months. -ON BB, started on junior inhibitor. -Will continue to monitor in outpateint setting. (3) Hypothyroidism Current Visit: Yes Status: Acute Per cardiology: -TSH 19.777. Management per primary team. Qualifiers: Hypothyroidism type: unspecified Qualified Code(s): E03.9 - Hypothyroidism , unspecified Discussion w patient/family: The assessment and plan as outlined above was discussed with the patient and/or family members who expressed understanding and agreement. All questions were answered. Thank you for involving us in the care of your patient. Please call with any questions. Discussed and reviewed with Dr.John Hong. Subjective Principal diagnosis: NSTEMI Interval history: Patient is s/p LHC yesterday. Denies chest pain. Denies issues walking or using right leg. States he feels fine this morning. Objective Vital Signs, Last 4 Hours Pulse Resp BP 05/23/18 08:11 94 16 168/112 General: Conversant, No Apparent Distress HEENT: Atraumatic, Normocephaly, Mucus Membranes Moist Neck: No JVD, Normal carotid pulses Cardiac: Reg Rate and Rhythm, Normal S1 and S2, No Murmur Lungs: Normal Breath Sounds, No Wheeze, Rales, Rhonchi Neuro: Alert and responsive, No focal deficits noted Abdomen: Soft, Non-Tender Skin: No rashes noted on visualized skin, Other (Right groin access site without hematoma or ecchymosis. ) Musculoskeletal: No Chest Wall Tenderness Extremities: No Clubbing, No Cyanosis, No Edema, Normal Pulses Results 05/23/18 01:14 05/23/18 01:14 Lab Results Impressions Echocardiogram 05/22/18 05:43 Impressions: LVEF 55%. Mild to moderate concentric left ventricular hypertrophy. Mild left ventricular diastolic dysfunction. Normal right ventricular structure and function. No significant valvular dysfunction. No pulmonary hypertension - lack of significant TR gradient. Mild elevation of RA pressures. Left Ventricular Wall Motion: Rest Echo Findings All wall segments showed normal motion. Findings: Study Quality * Technically adequate exam. ECG Findings * Normal sinus rhythm. Left Ventricle * LVEF 55%. * Mild to moderate concentric left ventricular hypertrophy. * Mild left ventricular diastolic dysfunction. Right Ventricle * Normal right ventricular structure and function. Left Atrium * Mildly dilated left atrium. Right Atrium * Normal right atrial size. Aortic Valve * No aortic regurgitation. * Trileaflet aortic valve. * No aortic stenosis. Mitral Valve * No mitral regurgitation. * Normal mitral valve structure. * No mitral stenosis. Tricuspid Valve * Tricuspid valve not well visualized. * No tricuspid regurgitation. * Estimated RA pressure is 8 mmHg. Pulmonic Valve * Pulmonic valve is not well visualized. * No pulmonic stenosis. * No pulmonic regurgitation. Pulmonary Artery * Pulmonary artery not well visualized. Aorta * Normally sized aortic root. Pericardium * There is no pericardial effusion present. Interatrial Septum * No evidence of PFO by color Doppler. IVC * The IVC is dilated. * > 50% respiratory change Active Medications Aspirin (Aspirin) 81 mg PO DAILY ROSALINE Stop: 11/21/18 09:31 Last Admin: 05/23/18 08:07 Dose: 81 mg Atorvastatin Calcium (Lipitor) 80 mg PO HS ROSALINE Stop: 02/01/19 21:01 Last Admin: 05/22/18 20:35 Dose: 80 mg Hydralazine HCl (Hydralazine) 10 mg IVP Q6HR PRN PRN Reason: Hypertension Stop: 11/21/18 09:21 Last Admin: 05/23/18 03:08 Dose: 10 mg Lisinopril (Zestril) 10 mg PO DAILY ROSALINE PRN Reason: Protocol Stop: 11/22/18 09:46 Metoprolol Tartrate (Lopressor) 50 mg PO BID [facility] Stop: 11/22/18 09:01 Last Admin: 05/23/18 09:22 Dose: 25 mg Morphine Sulfate (Morphine Sulfate) 2 mg IVP Q4HR PRN; Protocol PRN Reason: Chest Pain Stop: 11/21/18 05:50 Naloxone HCl (Narcan) 0.4 mg IVP Q2MIN PRN PRN Reason: SEE COMMENTS Stop: 11/21/18 05:37 Ondansetron HCl (Zofran) 4 mg IVP Q6HR PRN; Protocol PRN Reason: Nausea And Vomiting Stop: 11/21/18 18:08 Ticagrelor (Brilinta) 90 mg PO BID [facility] Stop: 11/21/18 21:01 Last Admin: 05/23/18 08:07 Dose: 90 mg Laboratory Tests 05/23/18 05/23/18 01:14 01:14 WBC 13.7 H Hgb 15.8 Creatinine 0.84 - Imaging and Cardiology Chest Xray: report reviewed Echo: report reviewed Cardiac cath: report reviewed - EKG Interpretation EKG results cardiology: other (Telemetry reviewed with average HR previous 12 hours noted to be 88, SR. PVCs, one 4 beat run of non-sustained VT noted, PACs noted.) Consult Discharge Plan - Plan Referrals: Danny Xie DO [Primary Care Provider] - Kaela Cartre [Family Provider] -
[2018-05-23 13:07] VITALS: BP 147/90
--- NOTE | 2018-05-23 13:24 | Discharge Summary ---
- NOTES TO OUTPATIENT PROVIDER Notes to Outpatient Provider: f/u with cardio in 1-2 wks. f/u with pcp in 1 wk. monitor BP with the help of PCP Orders not resulted at time of discharge: Pending orders 05/23/18 07:00 ECG 12 lead ECG [ECG] Routine Date of Encounter: 05/23/18 Time of Encounter: 13:20 - Discharge Diagnosis (1) NSTEMI (non-ST elevated myocardial infarction) Priority: Primary Status: Inactive Assessment and Plan: Pt had chest pain with elevated troponins of 3.96. Has risk factors for CAD including htn, hyperlipidemia , obesity and has not been taking his BP meds for 6 months. Started on ACS protocol with full anticoagulation, nitroglycerin, plavix and statin. Patient does not have true allergy for aspirin CT angio showed no PE. TTE with LVEF 55%, moderate concentric LVH, mild diastolic dsyfunction, mild elevation in RA pressures, no segmental wall motion abnormalities noted. -S/p LHC with 3 ARIAS placed to LAD. [facility]'s okay to discharge patient home with follow-up outpatient. Will discharge patient on dual antiplatelet therapy aspirin Brilinta, beta krysta and statin and DAVID inhibitor. (2) Hypertensive emergency Priority: Primary Status: Inactive Assessment and Plan: Hypertensive emergency with acute NSTEMI. On admission Pt had elevated BP to 235/140 with chest pain and elevated troponins. Initially started on a nitroglycerin drip but eventually stopped. Now blood pressure better controlled on higher dose of beta krysta and added lisinopril. Needs to monitor blood pressure on OPD basis with the help of PCP. (3) Hypothyroidism Priority: Primary Status: Acute Assessment and Plan: High TSH. Will start Synthroid 25 g daily and further follow-up as PCP Qualifiers: Hypothyroidism type: unspecified Qualified Code(s): E03.9 - Hypothyroidism , unspecified Hospital course: Mr. Odonnell is a 38 year old male patient got admitted for hypertensive urgency , [place]. [facility] was consulted and did perform LSC. Eventually blood pressure came down nicely. Please see details in diagnosis section of discharge summary. At the time of discharge patient is clinically hemodynamically stable been no chest pain better blood pressure control, ambulating and tolerating oral diet. Discussed discharge plan with patient and family. - Time Spent with Patient Total time spent providing and/or coordinating discharge services: - Discharge Medications Home Medications: Aspirin 81 mg PO DAILY #30 tab.chew 05/23/18 [Rx] Atorvastatin [Lipitor] 80 mg PO HS #30 tablet 05/23/18 [Rx] Levothyroxine [Synthroid] 25 mcg PO 0630 #30 tablet 05/23/18 [Rx] Lisinopril [Zestril] 10 mg PO DAILY #30 tablet 05/23/18 [Rx] Metoprolol [Lopressor] 50 mg PO BID #60 tablet 05/23/18 [Rx] Ticagrelor [Brilinta] 90 mg PO BID #60 tablet 05/23/18 [Rx] Allergies/Adverse Reactions: 3 Allergy/AdvReac Type Severity Reaction Status Date / Time aspirin Allergy Rash Verified 05/21/18 22:53 Date of admission: 05/22/18 05:36 Primary care physician: Danny Xie DO Consults: 05/22/18 05:44 Consult to Cardiology [CONS] Routine Comment: Consulting Provider: Cardiology Sindhu Reason for Consult: NSTEMI Call Completed: Yes 05/22/18 14:31 Consult to Cardiac Rehabilitation-Phase1 [CONS] Routine Comment: Reason for Consult: AMI Call Completed: Yes Consult to Nurse Navigator [CONS] Routine Comment: - Constitutional Vitals: Temp Pulse Resp BP Pulse Ox 98.7 F 89 16 147/90 94 05/23/18 10:50 05/23/18 13:04 05/23/18 13:04 05/23/18 13:04 05/23/18 03:30 Exam: General appearance: No acute distress, A&O X 3 Head exam: Atraumatic Eye exam: EOMI, PERRLA ENT exam: Moist oral mucosa Neck nontender, supple Respiratory exam: Clear to auscultation bilaterally Cardiovascular exam: Regular rate and rhythm, no systolic murmur Abdominal exam: Soft, nontender, nondistended, positive bowel sounds Extremities exam: No calf tenderness, no pedal edema Present: Neurological exam: Grossly intact - Patient Status Disposition: Home, Self-Care Condition: Good Overall status at discharge: patient is progressing back to baseline - Discharge Instructions Follow Up With: Danny Xie DO [Primary Care Provider] - Kaela Carter [Family Provider] - - Diet and Activity Activity: as per the cardiac rehab Diet: low fat, low cholesterol, low salt diet
== END 2018-05-23 15:32 | disposition home or self-care (01) | DRG 174 ==
LOC: 2NENU
PROVIDERS: ADMIT Student in an Organized Health Care Education/Training Program; ATTEND Student in an Organized Health Care Education/Training Program